=== PATIENT | female | born 2000 | race African-American/Black ===

== ENCOUNTER 2024-06-22 15:50 | Emergency (ER) | payer SELFPAY ==
[~2024-06-22] VITALS: Ht 165.1 cm; Wt 60.0 kg
[2024-06-22 15:53] VITALS: O2SAT 100
[2024-06-22] MEDS: ONDANSETRON HCL 4MG/2ML INJ IV ONE (16:44)
[2024-06-22 16:50] LABS: BASOPHILS % 0.6 % (0.0-2.0); DIFFERENTIAL COMMENT 0; EOSINOPHILS % 2.2 % (0.0-5.0); HEMATOCRIT. 41.6 % (36.0-48.0); HEMOGLOBIN. 13.3 g/dL (12.0-16.0); LYMPHOCYTES % 22.7 % (20.0-50.0); MEAN CORPUSCULAR HEMOGLOBIN 24.4 pg (28.0-32.0); MEAN CORPUSCULAR HGB CONC 31.8 g/dL (31.0-37.0); MEAN CORPUSCULAR VOLUME 76.6 fL (81.0-99.0); MEAN PLATELET VOLUME 7.4 fl (7.4-10.4); MONOCYTES % 7.7 % (2.0-8.0); NEUTROPHILS % 66.8 % (40.0-76.0); PLATELET 358 x1000/uL (130-400); RED BLOOD CELL COUNT 5.43 mill/uL (4.2-5.4); RED CELL DISTRIBUTION WIDTH 14.9 % (11.6-14.6); WHITE BLOOD COUNT 7.4 x1000/uL (4.5-11.0)
[2024-06-22 16:56] LABS: CHLORIDE 104 mEq/L (98-107); POTASSIUM 3.4 mEq/L (3.5-5.1); SODIUM 135 mEq/L (136-145)
[2024-06-22 16:57] LABS: CARBON DIOXIDE 23 mEq/L (21-32)
[2024-06-22 16:58] LABS: CALCIUM 9.6 mg/dL (8.7-10.4)
[2024-06-22 17:02] LABS: CREATININE 0.7 mg/dL (0.6-1.0); GLUCOSE 93 mg/dL (70-105)
[2024-06-22 17:03] LABS: UREA NITROGEN BLOOD 10 mg/dL (9-23)
[2024-06-22 17:04] LABS: CLARITY URINE CLOUDY (CLEAR); COLOR URINE YELLOW (YELLOW); GLUCOSE URINE NEGATIVE (NEGATIVE); KETONES URINE 2+ (NEGATIVE); LEUKOCYTE ESTERASE URINE 1+ (NEGATIVE); NITRITE URINE NEGATIVE (NEGATIVE); OCCULT BLOOD URINE NEGATIVE (NEGATIVE); PROTEIN URINE NEGATIVE (NEGATIVE); SPECIFIC GRAVITY URINE 1.006 (1.005-1.030); UROBILINOGEN URINE 0.2 E.U./dL (0.2-1.0)
[2024-06-22 17:09] LABS: TROPONIN I HIGH SENSITIVITY < 4 ng/L (3.0-34)
[2024-06-22 17:24] LABS: BACTERIA URINE TRACE; RBC URINE NONE SEEN /hpf (0-2); SQUAMOUS EPITHELIAL CELL URINE FEW /lpf (RARE/1+)
[2024-06-22] MEDS: ACETAMINOPHEN 325MG TABLET PO ONE (19:03)
[2024-06-22 19:15] VITALS: BP 109/58; PULSE 98; RESP 18; TEMP 36.6; O2SAT 100
== END 2024-06-22 19:40 | disposition home or self-care (01) ==
LOC: ER 15:50
DX: R55 Syncope and collapse (principal)
CPT/HCPCS: 80048; 81003; 85025; 84484; 36415; 71045; 93005; 96374; 99285; J2405; Z7610